=== PATIENT | female | born 1980 | race African-American/Black ===

== ENCOUNTER 2022-10-29 01:10 | Emergency (ER) | payer BC ==
[~2022-10-29] VITALS: Ht 162.6 cm; Wt 56.7 kg
--- NOTE | 2022-10-29 01:30 | NUR ---
C/O DIZZINESS, H/A, ABD PAIN, APHASIA X2 DAYS. to bed 9. monitor conneected
--- NOTE | 2022-10-29 01:40 | NUR ---
iv line in rac#[id number], labs drawn
[2022-10-29 01:48] LABS: BASOPHILS % (AUTO) 0.5 % (0.0-2.0); EOSINOPHILS % (AUTO) 0.2 % (0.0-6.0); HEMATOCRIT 42 % (33-45); LYMPHOCYTES # (AUTO) 0.9 K/uL (0.8-4.8); LYMPHOCYTES % (AUTO) 26.2 % (20.0-44.0); MEAN CORPUSCULAR HGB CONC 33 g/dl (31.0-36.0); MEAN CORPUSCULAR VOLUME 96 fL (82-100); MONOCYTES # (AUTO) 0.3 K/uL (0.1-1.30); NEUTROPHILS # (AUTO) 2.3 K/uL (1.8-8.9); NEUTROPHILS % (AUTO) 65.1 % (43.0-81.0); PLATELET COUNT (AUTO) 164 K/uL (150-450); WHITE BLOOD COUNT (AUTO) 3.5 K/uL (4.3-11.0)
[2022-10-29] MEDS ORDERED: IOHEXOL-350 100 ML VIAL IV ONE (01:49)
[2022-10-29] MEDS ORDERED: IV NS 0.9% 250 ML IV ONE (01:49)
[2022-10-29 01:56] LABS: CALCIUM, SERUM 9.8 mg/dL (8.5-10.1); CARBON DIOXIDE 25 mmol/L (21-32); CHLORIDE 104 mmol/L (98-107); CREATININE 0.9 mg/dL (0.6-1.3); GLUCOSE 116 mg/dL (74-106); LIPASE 118 U/L (73-393); POTASSIUM 4.3 mmol/L (3.5-5.1); SODIUM SERUM 136 mmol/L (136-145); UREA NITROGEN, BLOOD 10 mg/dL (7-18)
--- NOTE | 2022-10-29 02:24 | NUR ---
patient take to CT
[2022-10-29 04:12] LABS: BILIRUBIN,URINE NEGATIVE (NEGATIVE); COLOR,URINE YELLOW (YELLOW); LEUKOCYTE ESTERASE ,URINE NEGATIVE (NEGATIVE); NITRITE, URINE NEGATIVE (NEGATIVE); PROTEIN,URINE NEGATIVE (NEGATIVE); UGLUCOSE NEGATIVE (NEGATIVE); UROBILINOGEN,URINE 0.2 EU/dL (0.2)
--- NOTE | 2022-10-29 04:18 | NUR ---
Sarai salcido in ED - 10/29/22 at 0422 by RONA Patient discharged to home in stable condition. Written and verbal after care instructions given. Patient verbalizes understanding of instruction. ambulatory with a steady gait. leaving with friend in [facility].
[2022-10-29] MEDS ORDERED: ASPIRIN 325 MG TABLET PO ONE (04:30)
--- NOTE | 2022-10-29 04:42 | NUR ---
COVID ANTIGEN SWAB COLLECTED AND SENT TO LAB
[2022-10-29] MEDS ORDERED: ASPIRIN 325 MG TABLET ONE ×2 (04:45→04:47)
--- NOTE | 2022-10-29 04:54 | NUR ---
DR. LAZ GARCIA ON PHONE CALL WITH DR. DEANNA GARCIA [facility] [place]
--- NOTE | 2022-10-29 05:16 | NUR ---
FAXED FACESHEET TO [facility] FAX [phone] PHONE [phone] WILL FAX COVID AND WHEN RESULTED
--- NOTE | 2022-10-29 06:16 | NUR ---
PT ACCEPTED TO [facility] ROOM [address] [facility] CALL FOR REPORT [phone] [place] ETA 45 MINS
--- NOTE | 2022-10-29 06:29 | NUR ---
REPORT GIVEN TO MARIA A TALLEY NEURO [place] [facility] [place]
[2022-10-29 07:08] VITALS: BP 93/59
--- NOTE | 2022-10-29 07:09 | NUR ---
report given to S EMT. patient being transfered to [facility] [place] via S trasnport.
== END 2022-10-29 07:15 | disposition short-term general hospital (02) ==
LOC: ER 01:21
DX: R47.01 Aphasia (principal); R11.2 Nausea with vomiting, unspecified; D72.819 Decreased white blood cell count, unspecified; Z20.822 Contact with and (suspected) exposure to COVID-19; R10.84 Generalized abdominal pain; Z88.0 Allergy status to penicillin
CPT/HCPCS: 99285; 70498; 71045; 87426; 93005; 70496; 74176; 85025; 80048; 83690; 84703; 81003; 36415; 84484; 85730; 82962; 70450; J7050; Q9967; C9803